=== PATIENT | male | born 1945 | race Caucasian/White ===

== ENCOUNTER → 2016-07-02 | Day surgery (SDC) | payer MEDICARE ==
[~2016-07-02] MED LIST: Brimonidine 0.2% Ophth Soln 5 ML Bottle EYERT SCH; Phenylephrine 2.5% Ophth Soln 2 ML Bot EYERT SCH
[2016-07-02 14:24] VITALS: BP 132/73
== END ==
LOC: JD.SDS 11:22
PROVIDERS: ATTEND Ophthalmology
DX: H26.491 Other secondary cataract, right eye (principal); I10 Essential (primary) hypertension; E11.9 Type 2 diabetes mellitus without complications; Z79.4 Long term (current) use of insulin; E78.00 Pure hypercholesterolemia, unspecified; Z98.890 Other specified postprocedural states; Z87.891 Personal history of nicotine dependence; Z79.82 Long term (current) use of aspirin; Z79.899 Other long term (current) drug therapy
CPT/HCPCS: 66821; A9270